=== PATIENT | female | born 1970 | race Caucasian/White ===

== ENCOUNTER → 2022-08-23 | Outpatient (CLI) | payer BC ==
[~2022-08-23] MED LIST: NORCO 7.5-3251 EACH PO
== END ==
LOC: CT 14:48
PROVIDERS: ATTEND Internal Medicine Gastroenterology
DX: Z87.19 Personal history of other diseases of the digestive system (principal)

== ENCOUNTER → 2022-09-11 | Day surgery (SDC) | payer BC ==
[~2022-09-11] MED LIST changes: +CYCLOBENZAPRINE5 MG PO; +DICYCLOMINE HCL10 MG PO; +FENTANYL CITRATE/PF 100MCG/2 ML INJ ONE; +GLUCAGON FOR INJ 1 MG VIAL ONE; +LACTATED RINGER'S 1,000 ML ONE; +LEXAPRO20 MG PO; +LIDOCAINE HCL 2% LOCAL INJ 5 ML SDV VIAL INJ ONE; +MULTI-VITAMIN1 EACH PO; +NEXIUM40 MG PO; +PROBIOTIC & AC1 EACH PO; +PROPOFOL IV EMULSION 10 MG/ML 20 ML VIAL ONE; +[UNRECOGNIZED DRUG - OTHER] PO
[2022-09-11 11:31] VITALS: TEMP 97
[2022-09-11 12:16] VITALS: BP 117/68; PULSE 72; RESP 18; O2SAT 98
== END | disposition home or self-care (01) ==
LOC: OR 08:44
PROVIDERS: ATTEND Internal Medicine Gastroenterology
DX: K22.70 Barrett's esophagus without dysplasia (principal); K29.70 Gastritis, unspecified, without bleeding; K21.9 Gastro-esophageal reflux disease without esophagitis; K57.90 Diverticulosis of intestine, part unspecified, without perforation or abscess without bleeding; K44.9 Diaphragmatic hernia without obstruction or gangrene; K59.00 Constipation, unspecified; Z87.19 Personal history of other diseases of the digestive system; I10 Essential (primary) hypertension; D64.89 Other specified anemias; R70.0 Elevated erythrocyte sedimentation rate; R07.9 Chest pain, unspecified; M06.9 Rheumatoid arthritis, unspecified; M19.90 Unspecified osteoarthritis, unspecified site; F32.A Depression, unspecified; E03.9 Hypothyroidism, unspecified; F43.10 Post-traumatic stress disorder, unspecified; Z79.899 Other long term (current) drug therapy; Z98.1 Arthrodesis status; Z83.79 Family history of other diseases of the digestive system
CPT/HCPCS: 43239; 93005; J1610; J2001; J2704; J3010; J7121

== ENCOUNTER → 2022-10-09 | Day surgery (SDC) | payer BC ==
[~2022-10-09] MED LIST changes: -GLUCAGON FOR INJ 1 MG VIAL ONE; +MIDAZOLAM HCL 2 MG/2 ML VIAL ONE
[2022-10-09 11:41] VITALS: TEMP 97.1
[2022-10-09 12:13] VITALS: BP 123/87; PULSE 87; RESP 18; O2SAT 100
== END | disposition home or self-care (01) ==
LOC: OR 09:13
PROVIDERS: ATTEND Internal Medicine Gastroenterology
DX: Z12.11 Encounter for screening for malignant neoplasm of colon (principal); K57.30 Diverticulosis of large intestine without perforation or abscess without bleeding; R19.8 Other specified symptoms and signs involving the digestive system and abdomen; Z90.49 Acquired absence of other specified parts of digestive tract; Z87.19 Personal history of other diseases of the digestive system; K29.70 Gastritis, unspecified, without bleeding; R13.10 Dysphagia, unspecified; K22.70 Barrett's esophagus without dysplasia; K44.9 Diaphragmatic hernia without obstruction or gangrene; D64.89 Other specified anemias; R03.0 Elevated blood-pressure reading, without diagnosis of hypertension; E03.9 Hypothyroidism, unspecified; F43.10 Post-traumatic stress disorder, unspecified; Z79.899 Other long term (current) drug therapy; Z68.31 Body mass index [BMI] 31.0-31.9, adult; Z86.73 Personal history of transient ischemic attack (TIA), and cerebral infarction without residual deficits; Z83.79 Family history of other diseases of the digestive system
CPT/HCPCS: 44388; 45330; J2001; J2250; J2704; J3010; J7121; 45378